=== PATIENT | male | born 1950 | race Caucasian/White ===

== ENCOUNTER 2016-10-18 06:48 | Day surgery (SDC) | payer BC ==
[2016-10-14 13:45] LABS: BASOPHILS 0.2 %; BASOPHILS ABSOLUTE 0.02 10/3/uL (0.0-0.16); EOSINOPHILS 0.8 %; EOSINOPHILS ABSOLUTE 0.08 10/3/uL (0.0-0.53); HEMOGLOBIN 14.2 g/dL (13.6-17.8); IMMATURE GRANULOCYTES 0.5 %; IMMATURE GRANULOCYTES ABSOLUTE 0.05 10/3/uL (0.0-0.11); LYMPHOCYTES 19.9 %; LYMPHOCYTES ABSOLUTE 1.96 10/3/uL (0.67-4.30); MEAN CORPUS HGB CONC 34.2 g/dL (32.0-36.0); MEAN CORPUSCULAR VOLUME 87.6 fL (80-100); MEAN PLATELET VOLUME 9.9 fL (9.2-13.0); MONOCYTES 9.7 %; MONOCYTES ABSOLUTE 0.96 10/3/uL (0.21-1.20); NEUTROPHILS 68.9 %; PLATELET COUNT 267 10/3/uL (150-400); RBC DISTRIBUTION WIDTH 12.8 % (12.0-16.0); RED CELL COUNT 4.74 10/6/uL (4.7-6.1); WHITE BLOOD CELLS 9.9 10/3/uL (4.5-10.5)
[2016-10-14 13:46] LABS: HEMATOCRIT 41.5 % (40.0-51.0); MANUAL DIFF NO %
[2016-10-14 13:50] LABS: INTERNATIONAL NORMAL RATI 1.1 UNITS (-); PARTIAL THROMBO TIME 31.4 SEC (22.5-37.2); PROTIME (NOT ORD) 13.9 SEC (12.0-14.5)
[2016-10-14 13:58] LABS: BUN (BLOOD UREA NITROGEN) 22 MG/DL (6-23); CALCIUM, SERUM 9.1 MG/DL (8.5-10.4); CHLORIDE, SERUM 106 MMOL/L (96-112); CO2 (CARBON DIOXIDE) 27 MMOL/L (24-34); CREATININE 1.23 MG/DL (0.70-1.30); GFR AFRICAN AMERICAN 69 ML/MIN (>=60); GFR NON AFRICAN AMERICAN 60 ML/MIN (>=60); GLUCOSE, SERUM 81 MG/DL (60-99); POTASSIUM, SERUM 4.5 MMOL/L (3.5-5.3); SODIUM, SERUM 141 MMOL/L (135-148)
[~2016-10-18] VITALS: Ht 170.2 cm; Wt 96.6 kg
--- NOTE | ~2016-10-18 | OP ---
Record Of Operation [facility] [address] [place]. [address] NAME: FRANCIS PALMA : 46 STATUS : [facility]#: [id number] AGE: 66 ADM/REG DATE : 10/18/16 MR#: [id number] REPORT SERV DATE: 10/19/16 DICTATED BY: DREW SMITH DATE: 10/19/16 REPORT STATUS : Draft TRANSCRIBED BY: ARIK DATE: 10/19/16 DATE OF PROCEDURE: 10/18/2016 PREOPERATIVE DIAGNOSIS: Left cheek lentigo maligna. POSTOP DIAGNOSIS: Left cheek lentigo maligna. OPERATIVE PROCEDURES PERFORMED: Wide local excision of the left cheek lentigo maligna with advancement flap closure. Approximately 4 cm defect and a surface area of the flap of approximately 12 to 20 cm2 in size. INDICATIONS AND SIGNIFICANT HISTORY: The patient is a 66-year-old male, who was identified as having a lentigo maligna in his left cheek. 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 Given the fairly superficial nature of this tumor, simple excision with advancement flap closure was selected, and no sentinel node biopsy was required at this point. DESCRIPTION OF PROCEDURE: At this point, the patient was brought to the operating room, placed on the operating table in the supine position, at which point, monitor anesthesia care was provided by the Anesthesia Service and the left cheek was identified, edges were marked in a circumferential fashion and the area was infiltrated with approximately 10 mL of 2% lidocaine with 1:100,000 epinephrine. At this point, a 15 blade scalpel was used to perform an elliptical excision followed by dissection of the tissue from the lateral surface of the cheek using a Erie tip needle cautery. Hemostasis was achieved with the needle cautery. Next, a Metzenbaum scissor was used to elevate the skin flap through the fat plane lateral to the parotid gland. This was advanced into the cheek and was advanced under the ear. Next, the skin flap was then retracted posteriorly and was sewn in place with multiple layers of deep Vicryl suture followed by closure of the skin with 4-0 plain gut. The patient then had specimen marked at the 12 o'clock position with the Vicryl suture, was turned back toward Anesthesia, and taken to the Postanesthesia Care Unit 2 in satisfactory condition. COMPLICATIONS: None. ESTIMATED BLOOD LOSS: Approximately 5 mL. IV FLUIDS: Per Anesthesia. DLA/MODRaysa Drew Smith M.D. / [id number] Record Of [address] [address] NAME: FRANCIS PALMA : 46 STATUS : [facility] PAT#: [id number] AGE: 66 ADM/REG DATE : 10/18/16 MR#: [id number] REPORT SERV DATE: 10/19/16 DICTATED BY: DREW SMITH DATE: 10/19/16 REPORT STATUS : Draft TRANSCRIBED BY: ARIK DATE: 10/19/16 CC: Elin Alves M.D.
[~2016-10-18 06:48] MED LIST: FLOMAX4 PO; MOBIC15 MG PO; NAP250 PO; PRILO PO; ZESTORETIC1 TAB PO
== END 2016-10-18 11:48 | disposition home or self-care (01) ==
LOC: SDC 06:48
PROVIDERS: Otolaryngology
PROC: 0HX1XZZ Transfer Face Skin, External Approach (ICD-10-PCS; principal; 2016-10-18 08:30)
DX: D03.39 Melanoma in situ of other parts of face (principal); I10 Essential (primary) hypertension; K21.9 Gastro-esophageal reflux disease without esophagitis; E66.01 Morbid (severe) obesity due to excess calories; E78.00 Pure hypercholesterolemia, unspecified; M62.838 Other muscle spasm; Z68.33 Body mass index [BMI] 33.0-33.9, adult; Z98.890 Other specified postprocedural states; Z88.1 Allergy status to other antibiotic agents; Z88.2 Allergy status to sulfonamides; Z82.49 Family history of ischemic heart disease and other diseases of the circulatory system; Z82.3 Family history of stroke; Z79.899 Other long term (current) drug therapy
CPT/HCPCS: 36415; 80048; 85025; 85610; 85730; 88305; 88342; 93005; J0690; J2250; J2370; J3010